=== PATIENT | male | born 1955 | race Caucasian/White ===

== ENCOUNTER 2017-06-24 18:20 | Emergency (ER) | payer BC ==
--- NOTE | 2017-06-27 09:47 | ER ---
ADMIT: 06/24/2017 RM/LOC: ER [facility] MR#: [id number] [address] [id number] ROWANALEJANDRAASCENCION Michelle [address] [place] [address] Emergency Room Report SEX: M AGE: 61 : 1955 DATE: 06/24/2017 CHIEF COMPLAINT: Rib pain. HISTORY OF PRESENT ILLNESS: This is a 61-year-old male, who tripped over his dog 2 nights ago and hit his chest on the chest of drawers. He said he actually did not feel too bad at that time, but then starting yesterday, the pain became increasingly worse. Today, he feels like he is having a more difficult time breathing and moving around. X-ray was done of his chest, is negative for any fractures, no pneumo, no pneumonia. I will send him home with [place] for pain. CLINICAL IMPRESSION: Chest contusion. DISPOSITION: We will have him ice, use [place] or Motrin for pain. Follow up with his PCP if worsens. DANIEL Hamlin / Aubrey Jacome MD / jamesl JOB #: [id number] CC: Aubrey Jacome MD, Attending Physician Ash Lora DO, Family Physician
== END 2017-06-24 20:30 | disposition home or self-care (01) ==
LOC: ER 18:20
DX: S20.219A Contusion of unspecified front wall of thorax, initial encounter (principal); I10 Essential (primary) hypertension; Z79.899 Other long term (current) drug therapy; W01.0XXA Fall on same level from slipping, tripping and stumbling without subsequent striking against object, initial encounter; Y92.009 Unspecified place in unspecified non-institutional (private) residence as the place of occurrence of the external cause